=== PATIENT | male | born 1960 | race Caucasian/White ===

== ENCOUNTER 2017-11-03 23:15 | Inpatient (IN) | payer OTHER ==
[~2017-11-03] VITALS: Ht 172.7 cm; Wt 73.5 kg
[2017-11-03 23:29] VITALS: BP 122/87
[2017-11-03] MEDS ORDERED: MORPHINE SULFATE 4 MG/ML, 1ML IVPush ONE (23:30)
[2017-11-03] MEDS ORDERED: OMEG1CAP6 PO (23:51)
[2017-11-03] MEDS ORDERED: metoprolol (23:51)
[2017-11-03] MEDS ORDERED: ASPI-621 PO (23:51)
[2017-11-03] MEDS ORDERED: [UNRECOGNIZED DRUG - OTHER] (23:51)
[2017-11-03] MEDS ORDERED: amlodipine (23:51)
[2017-11-04] VITALS (8 sets, daily range): BP systolic 106–136; BP diastolic 69–91
[2017-11-04] MEDS ORDERED: ONDANSETRON ODT 4 MG PO PRN (03:00)
[2017-11-04] MEDS ORDERED: BISACODYL 10 MG SUPP PR PRN (03:00)
[2017-11-04] MEDS ORDERED: ONDANSETRON 2MG/ML, 2ML IVPush PRN (03:00)
[2017-11-04] MEDS ORDERED: ACETAMINOPHEN 325 MG TABLET PO PRN (03:00)
[2017-11-04] MEDS ORDERED: DOCUSATE 100 MG CAPSULE PO PRN (03:00)
[2017-11-04] MEDS ORDERED: morphine SULFATE 10 MG/ML, 1ML IVPush PRN (03:00)
[2017-11-04] MEDS ORDERED: HEPARIN 5,000 UNITS/ML, 1ML ONE (03:11)
[2017-11-04] MEDS ORDERED: NITROGLYCERIN 0.4 MG BOTTLE (25 TABS) SL PRN (03:30)
[2017-11-04] MEDS ORDERED: SODIUM CHLORIDE 0.9% 1,000 ML IV SCH (03:30)
[2017-11-04] MEDS ORDERED: NITROGLYCERIN 0.4 MG/SPRAY SL PRN (03:30)
[2017-11-04] MEDS: HEPARIN 5,000 UNITS/ML, 1ML SQ SCH ×3 (03:39→20:26)
[2017-11-04 03:59] LABS: TROPONIN I < 0.015 ng/mL (0.000-0.045)
[2017-11-04 04:19] LABS: HEMOGLOBIN A1C 5.7 % (4.2-6.3)
[2017-11-04] MEDS: SODIUM CHLORIDE 0.9% 1,000 ML IV SCH ×3 (04:57→20:26)
[2017-11-04] MEDS: ASPIRIN 325 MG TABLET EC PO SCH (04:58)
[2017-11-04 09:22] LABS: TROPONIN I < 0.015 ng/mL (0.000-0.045)
[2017-11-04] MEDS ORDERED: AMLO5TAB2 PO (14:45)
[2017-11-04] MEDS ORDERED: ENAL5TAB PO (14:45)
[2017-11-04] MEDS ORDERED: METO25TA35 PO (14:45)
[2017-11-04 15:24] LABS: ANION GAP 8 mmol/L (5-15); CALCIUM 8.7 mg/dL (8.5-10.1); CHLORIDE 110 mmol/L (98-107); CREATININE 1.03 mg/dL (0.7-1.3)
[2017-11-05 02:01] VITALS: BP 136/82
[2017-11-05] MEDS: HEPARIN 5,000 UNITS/ML, 1ML SQ SCH ×2 (03:40→12:58)
[2017-11-05] MEDS: SODIUM CHLORIDE 0.9% 1,000 ML IV SCH ×2 (03:41→13:00)
[2017-11-05 07:24] LABS: BASOPHILS # (AUTO) 0.01 x10^3/uL (0-0.1); BASOPHILS % (AUTO) 0 % (0-1); EOSINOPHILS # (AUTO) 0.35 x10^3/uL (0-0.4); EOSINOPHILS % (AUTO) 7 % (1-7); LYMPHOCYTES # (AUTO) 1.99 x10^3/uL (1-3.4); LYMPHOCYTES % (AUTO) 39 % (22-44); MD NO; MEAN CORPUSCULAR HEMOGLOBIN 31.2 pg (27.5-34.5); MEAN CORPUSCULAR HGB CONC 34.4 g/dL (33.2-36.2); MEAN CORPUSCULAR VOLUME 90.9 fL (81-97); MONOCYTES # (AUTO) 0.31 x10^3/uL (0.2-0.8); MONOCYTES % (AUTO) 6 % (2-9); NEUTROPHILS % (AUTO) 48 % (42-75); PLATELET COUNT 259 x10^3/uL (130-400); RED BLOOD COUNT 4.93 x10^6/uL (4.38-5.82); RED CELL DISTRIBUTION WIDTH 13.6 % (9.4-14.8)
[2017-11-05 07:30] LABS: ALANINE AMINOTRANSFERASE 14 U/L (12-78); ALBUMIN 3.3 g/dL (3.4-5.0); ANION GAP 8 mmol/L (5-15); CALCIUM 8.2 mg/dL (8.5-10.1); CHLORIDE 109 mmol/L (98-107)
[2017-11-05 07:39] LABS: ALKALINE PHOSPHATASE 67 U/L (45-117); BILIRUBIN,TOTAL 0.4 mg/dL (0.2-1.0); CHOL/HDL RATIO 6.6; CHOLESTEROL, TOTAL 262 mg/dL (140-239); CREATININE 0.88 mg/dL (0.7-1.3); HDL CHOL % 15 % (26-37); HDL CHOLESTEROL (DIRECT) 40 mg/dL (40-60); LDL CHOLESTEROL,CALCULATED 179 mg/dL (54-169); LDL/HDL RATIO 4.5 (0.5-3.0); THYROID STIMULATING HORMONE 0.631 mIU/L (0.358-3.740); TOTAL PROTEIN 6.4 g/dL (6.4-8.2); TRIGLYCERIDES 213 mg/dL (50-200); VLDL CHOLESTEROL 43 mg/dL (0-25)
[2017-11-05] MEDS: ASPIRIN 325 MG TABLET EC PO SCH (07:56)
[2017-11-05] MEDS ORDERED: REGADENOSON 0.4 MG/5 ML SYRINGE ONE (08:11)
[2017-11-05 10:01] VITALS: BP 118/71
[2017-11-05 14:19] VITALS: BP 123/78
== END 2017-11-05 16:27 | disposition home or self-care (01) | DRG 682 ==
LOC: 5SO 23:15 → DCLOUNGE 11-05 16:20
PROVIDERS: ADMIT Surgery; ATTEND Surgery
DX: I12.9 Hypertensive chronic kidney disease with stage 1 through stage 4 chronic kidney disease, or unspecified chronic kidney disease (principal); N17.0 Acute kidney failure with tubular necrosis; I25.10 Atherosclerotic heart disease of native coronary artery without angina pectoris; R07.89 Other chest pain; I25.2 Old myocardial infarction; E78.5 Hyperlipidemia, unspecified; R73.9 Hyperglycemia, unspecified; N18.3 Chronic kidney disease, stage 3 (moderate); I35.8 Other nonrheumatic aortic valve disorders; Z95.5 Presence of coronary angioplasty implant and graft; Z79.82 Long term (current) use of aspirin; Z79.899 Other long term (current) drug therapy; Z82.3 Family history of stroke; Z82.49 Family history of ischemic heart disease and other diseases of the circulatory system
CPT/HCPCS: 36415; 78452; 80048; 80053; 80061; 83036; 83735; 84100; 84443; 84484; 85025; 93005; 93017; 93306; J1644; J2785; A9502; C9898; J7030

== ENCOUNTER 2018-10-07 23:19 | Observation (INO) | payer OTHER ==
[~2018-10-07] VITALS: Ht 172.7 cm; Wt 75.2 kg
[~2018-10-07 23:19] MED LIST: AMLO-150 PO; ASPI81TA45 PO; ENAL5TAB PO; METO25TA35 PO; OMEG1CAP6 PO; [UNRECOGNIZED DRUG - OTHER]; amlodipine; metoprolol
[2018-10-07] MEDS ORDERED: SODIUM CHLORIDE FLUSH 10ML SYR IVF ONE (23:30)
[2018-10-07] MEDS ORDERED: MORPHINE SULFATE 4 MG/ML, 1ML IVPush PRN (23:30)
[2018-10-07] MEDS ORDERED: NITROGLYCERIN OINT 2%, 1GM TP ONE ×2 (23:30→23:41)
[2018-10-07 23:41] LABS: BASOPHILS # (AUTO) 0.02 x10^3/uL (0-0.1); BASOPHILS % (AUTO) 0 % (0-1); EOSINOPHILS # (AUTO) 0.16 x10^3/uL (0-0.4); EOSINOPHILS % (AUTO) 2 % (1-7); LYMPHOCYTES # (AUTO) 2.54 x10^3/uL (1-3.4); LYMPHOCYTES % (AUTO) 38 % (22-44); MD NO; MEAN CORPUSCULAR HGB CONC 34.2 g/dL (33.2-36.2); MEAN CORPUSCULAR VOLUME 90.5 fL (81-97); MEAN PLATELET VOLUME 7.9 fL (7.4-10.4); MONOCYTES # (AUTO) 0.46 x10^3/uL (0.2-0.8); MONOCYTES % (AUTO) 7 % (2-9); NEUTROPHILS # (AUTO) 3.48 x10^3/uL (1.8-6.8); NEUTROPHILS % (AUTO) 52 % (42-75); PLATELET COUNT 295 x10^3/uL (130-400); RED BLOOD COUNT 5.08 x10^6/uL (4.38-5.82); RED CELL DISTRIBUTION WIDTH 14.4 % (9.4-14.8)
[2018-10-07 23:50] LABS: INTERNATIONAL NORMALIZED RATIO 1.06 (0.93-1.1); PROTHROMBIN TIME 11.2 Seconds (9.6-11.5)
[2018-10-07 23:51] LABS: ALBUMIN 3.5 g/dL (3.4-5.0); ANION GAP 7 mmol/L (5-15); CALCIUM 8.4 mg/dL (8.5-10.1); CHLORIDE 109 mmol/L (98-107); CREATININE 0.87 mg/dL (0.7-1.3)
[2018-10-07 23:55] LABS: TROPONIN I < 0.015 ng/mL (0.000-0.045)
[2018-10-08] VITALS (9 sets, daily range): BP systolic 99–148; BP diastolic 65–93
[2018-10-08] MEDS ORDERED: ONDANSETRON ODT 4 MG PO PRN (00:30)
[2018-10-08] MEDS ORDERED: NITROGLYCERIN 0.4 MG BOTTLE (25 TABS) SL PRN ×2 (00:30→02:00)
[2018-10-08] MEDS ORDERED: ONDANSETRON 2MG/ML, 2ML IVPush PRN (00:30)
[2018-10-08] MEDS ORDERED: hydrALAzine 20 MG/ML, 1ML IVPush PRN (00:30)
[2018-10-08] MEDS ORDERED: ACETAMINOPHEN 325 MG TABLET PO PRN (00:30)
[2018-10-08] MEDS ORDERED: morphine SULFATE 10 MG/ML, 1ML IVPush PRN (00:30)
[2018-10-08] MEDS ORDERED: POLYETHYLENE GLYCOL 17 GM PACKET PO PRN (00:30)
[2018-10-08] MEDS ORDERED: NITROGLYCERIN 0.4 MG/SPRAY SL PRN (02:00)
[2018-10-08 05:26] LABS: CHOLESTEROL, TOTAL 254 mg/dL (140-239); TRIGLYCERIDES 125 mg/dL (50-200); VLDL CHOLESTEROL 25 mg/dL (0-25)
[2018-10-08 05:29] LABS: CHOL/HDL RATIO 6.4; HDL CHOL % 16 % (26-37); HDL CHOLESTEROL (DIRECT) 40 mg/dL (40-60); LDL CHOLESTEROL,CALCULATED 189 mg/dL (54-169); LDL/HDL RATIO 4.7 (0.5-3.0); TROPONIN I < 0.015 ng/mL (0.000-0.045)
[2018-10-08] MEDS ORDERED: KETOROLAC 30 MG/1 ML IVPush ONE (06:30)
[2018-10-08] MEDS ORDERED: REGADENOSON 0.4 MG/5 ML SYRINGE ONE (08:44)
[2018-10-08] MEDS ORDERED: METOPROLOL TARTRATE 25 MG TABLET PO SCH (09:00)
[2018-10-08] MEDS ORDERED: ASPIRIN 81 MG TABLET EC PO SCH (09:00)
[2018-10-08] MEDS ORDERED: BUTALB/APAP/CAFFEINE 50MG/325MG/40MG PO PRN (11:00)
[2018-10-08] MEDS: OMEGA-3/FISH OIL CAPSULE PO SCH (11:07)
[2018-10-08] MEDS: AMLODIPINE 5 MG TABLET PO SCH (11:07)
[2018-10-08] MEDS: ENALAPRIL 5MG TABLET PO SCH (11:07)
[2018-10-08] MEDS: ASPIRIN 81 MG TABLET EC PO SCH (11:31)
[2018-10-08] MEDS ORDERED: ATORVASTATIN 20 MG TABLET PO SCH (21:00)
[2018-10-09 00:51] VITALS: BP_SYST 107; BP_SYST 120; BP_SYST 134; BP_DIAS 70; BP_DIAS 79; BP_DIAS 89
[2018-10-09 07:47] VITALS: BP 110/68
[2018-10-09 07:48] VITALS: BP 124/72
[2018-10-09 07:49] VITALS: BP 137/76
[2018-10-09] MEDS ORDERED: ATOR20TA PO (08:48)
[2018-10-09] MEDS ORDERED: METO25TA4 PO (08:50)
[2018-10-09] MEDS: OMEGA-3/FISH OIL CAPSULE PO SCH (09:18)
[2018-10-09] MEDS: ASPIRIN 81 MG TABLET EC PO SCH (09:18)
[2018-10-09] MEDS: ENALAPRIL 5MG TABLET PO SCH (09:19)
[2018-10-09] MEDS: AMLODIPINE 5 MG TABLET PO SCH (09:19)
== END 2018-10-09 13:07 | disposition home or self-care (01) ==
LOC: ED 10-08 → UNDOADMOB 10-08 00:03 → EDIP 10-08 00:03 → INTOOBSV 10-08 00:03 → EDIP 10-08 00:18 → 5SO 10-08 01:17 → UNDODISOB 10-09 13:07
PROVIDERS: ADMIT Hospitalist; ATTEND Hospitalist
DX: R07.89 Other chest pain (principal); E78.5 Hyperlipidemia, unspecified; E78.00 Pure hypercholesterolemia, unspecified; G43.909 Migraine, unspecified, not intractable, without status migrainosus; R00.1 Bradycardia, unspecified; I25.110 Atherosclerotic heart disease of native coronary artery with unstable angina pectoris; I10 Essential (primary) hypertension; I25.2 Old myocardial infarction; Z95.5 Presence of coronary angioplasty implant and graft; Z23 Encounter for immunization
CPT/HCPCS: 36415; 70551; 71045; 78452; 80048; 80061; 82040; 84484; 85025; 85610; 85730; 90471; 90656; 93005; 93017; 96374; 99284; A9502; C9898; G0378; J1885; J2785